=== PATIENT | female | born 1995 | race Caucasian/White ===

== ENCOUNTER 2017-08-28 09:03 | Emergency (ER) | payer SELFPAY ==
[~2017-08-28] VITALS: Ht 160 cm; Wt 75.3 kg
[2017-08-28 09:17] VITALS: BP 122/62; Ht 160 cm; Wt 75.3 kg
[2017-08-28 10:12] LABS: BASOPHIL % 0.4 % (0-2); PLATELET COUNT 276 x10^3mcL (130-400); RED CELL DISTRIBUTION WIDTH 13.9 % (11.5-14.5)
[2017-08-28 10:21] LABS: microscopic required? NO
[2017-08-28 10:29] LABS: UA SPECIFIC GRAVITY 1.015 (1.005-1.035); urine erythrocyte NEGATIVE (NEGATIVE)
== END 2017-08-28 10:55 | disposition home or self-care (01) ==
LOC: ED 09:03
PROVIDERS: Emergency Medicine
DX: O26.891 Other specified pregnancy related conditions, first trimester (principal); R10.9 Unspecified abdominal pain; Z3A.08 8 weeks gestation of pregnancy
CPT/HCPCS: 36415

== ENCOUNTER 2017-12-14 19:20 | Emergency (ER) | payer OTHER ==
[2017-12-14 20:46] VITALS: BP 110/68
== END 2017-12-14 23:15 | disposition left against medical advice (07) ==
LOC: ED 19:20
DX: Z53.21 Procedure and treatment not carried out due to patient leaving prior to being seen by health care provider (principal)